=== PATIENT | male | born 1935 | race Two or more races ===

== ENCOUNTER 2018-04-15 19:05 | Emergency (ER) | payer OTHER ==
[~2018-04-15] VITALS: Ht 185.4 cm; Wt 122.5 kg
[2018-04-15] MEDS ORDERED: SUCCINYLCHOLINE CHLORIDE 20 MG/ML VIAL IV ONE ×2 (19:08→22:30)
[2018-04-15] MEDS ORDERED: ETOMIDATE 2 MG/ML VIAL IV ONE ×2 (19:08→22:30)
--- NOTE | 2018-04-15 19:28 | NUR ---
PT BBRA FROM HOME FOR ALTERED MENTAL STATUS. PER EMS PT WAS FOUND BY FAMILY/FRIENDS IN HOME SITTING ON A RECLINER "ALTERED MORE THAN USUAL". PER EMS, FRIENDS STATED HE IS "USUALLY AAOX4". PT NOTED TO BE GCS OF 8-9. PT NOTED TO HAVE LABORED BREATHING WITH MILD DISTRESS. SPO2 86% ON RA, PER MD PT PLACED ON SIMPLE MASK 8L/M. PT ABLE TO MOVE LEFT ARM AND OPEN LEFT EYE. R EYE CLOSED AND UNABLE TO MOVE R ARM. PT PLACED ON MANAGER MARKETING SALES AND POX. PT SAFEY IN PLACE. MD BEDSIDE FOR EVAL.
[2018-04-15] MEDS ORDERED: ACETAMINOPHEN 650 MG/SUPP.RECT RC ONE ×2 (19:30→20:09)
--- NOTE | 2018-04-15 19:31 | NUR ---
PT TO CT VIA [facility] WITH ACLS RN
--- NOTE | 2018-04-15 19:32 | NUR ---
SPOKE WITH WITH GRAND DAUGHTER AYAH MELTON [phone]. 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
[2018-04-15 19:34] LABS: BASOPHILS # (AUTO) 0.5 /CMM (0.0-0.2); BASOPHILS % (AUTO) 3.6 % (0.0-2.0); HEMATOCRIT 49 % (39-51); LYMPHOCYTES # (AUTO) 0.5 /CMM (0.8-4.8); LYMPHOCYTES % (AUTO) 3.4 % (20.0-44.0); MEAN CORPUSCULAR HGB CONC 34 g/dl (31.0-36.0); MEAN CORPUSCULAR VOLUME 87 fL (80-96); MONOCYTES # (AUTO) 0.5 /CMM (0.1-1.30); MONOCYTES % (AUTO) 3.5 % (2.0-12.0); NEUTROPHILS # (AUTO) 12.8 /CMM (1.8-8.9); NEUTROPHILS % (AUTO) 89.5 % (43.0-81.0); PLATELET COUNT (AUTO) 206 /CMM (150-450); RDW COEFFICIENT OF VARIATION 12.4 (11.5-15.0); RED BLOOD CELL COUNT(AUTO) 5.69 MIL/uL (4.5-6.0); WHITE BLOOD COUNT (AUTO) 14.3 K/uL (4.3-11.0)
[2018-04-15 19:45] LABS: CALCIUM, SERUM 9.8 mg/dL (8.5-10.1); CARBON DIOXIDE 22 mmol/L (21-32); CHLORIDE 101 mmol/L (98-107); CREATININE 1.2 mg/dL (0.6-1.3); GLUCOSE 147 mg/dL (74-106); POTASSIUM 4.6 mmol/L (3.5-5.1); SODIUM SERUM 137 mmol/L (136-145); UREA NITROGEN, BLOOD 27 mg/dL (7-18)
[2018-04-15 19:48] LABS: INR 1.21 (0.85-1.15)
--- NOTE | 2018-04-15 19:48 | NUR ---
CALLED [facility] AND REQUESTED A SNAPSHOT FOR THIS PT.
--- NOTE | 2018-04-15 19:51 | NUR ---
PT BACK FROM CT
[2018-04-15 19:54] LABS: TROPONIN I 0.026 ng/mL (0.00-0.056)
[2018-04-15] MEDS ORDERED: VANCOMYCIN 1 GM in IV D5W 250 ML IV ONE (20:00)
[2018-04-15] MEDS ORDERED: IV NS 0.9% 1,000 ML BAG IV ONE (20:00)
[2018-04-15] MEDS ORDERED: CEFTRIAXONE 1GM BAG (ER ONLY) 1 GM/50 ML PIGGYBACK IV ONE (20:00)
[2018-04-15 20:02] LABS: LIPASE 52 U/L (73-393)
[2018-04-15] MEDS ORDERED: POTA20TA83 PO (20:04)
[2018-04-15] MEDS ORDERED: ASPI-1152 PO (20:04)
[2018-04-15] MEDS ORDERED: HYDR25TA4 PO (20:04)
[2018-04-15 20:05] LABS: B-TYPE NATRIURETIC PEPTIDE 3795 PG/ML (0-125)
[2018-04-15] MEDS ORDERED: PROPOFOL 10MG/ML 50ML 50 ML IV STA (20:07)
[2018-04-15] MEDS ORDERED: CEFTRIAXONE 1GM BAG (ER ONLY) 100 ML IV ONE (20:08)
[2018-04-15] MEDS ORDERED: PROPOFOL 100 ML ONE (20:08)
[2018-04-15] MEDS ORDERED: VANCOMYCIN 1 GM VIAL ONE (20:09)
--- NOTE | 2018-04-15 20:12 | NUR ---
RADIOLOGY BEDSIDE FOR CHEST X-RAY TO CONFIRM ET TUBE PLACEMENT
--- NOTE | 2018-04-15 20:13 | NUR ---
CALLED HERMILA BURT MD TO CALL
--- NOTE | 2018-04-15 20:15 | NUR ---
DIPRIVAN STARTED AT 15MCG/KG/MIN PER MD'S ORDERS. WILL CONTINUE TO MONITOR PT.
--- NOTE | 2018-04-15 20:15 | NUR ---
MD AVILES BEDSIDE. RT MARY ANN ZHANG FOR INTUBATION. RN ROBERT ZHANG FOR ASSISTANCE. PT SUCCESSFULLY INTUBATED BY MD AVILES, ET TUBE SIZE 8, 27 AT LIPS. VENT SETTING AC 16, 100%, 500, PEEP 5. PER MD'S ORDERS, PT STARTED IN DIPRIVAN PER PROTOCOL. WILL CONTINUE TO MONITOR PT.
[2018-04-15 20:20] VITALS: BP 208/121
[2018-04-15 20:35] LABS: APPEARANCE,URINE Clear (CLEAR); BILIRUBIN,URINE MODERATE (NEGATIVE); BLOOD, URINE Large Ery/uL (NEGATIVE); COLOR,URINE Amber (YELLOW); KETONES,URINE Trace (NEGATIVE); LEUKOCYTE ESTERASE ,URINE Negative (NEGATIVE); NITRITE, URINE Negative (NEGATIVE); PH,URINE 5.5 (5.0-8.0); PROTEIN,URINE >=300 mg/dl (NEGATIVE); UGLUCOSE Negative (NEGATIVE)
[2018-04-15 20:44] LABS: BAND % (MANUAL) 19 % (0.0-5.0); LYMPHOCYTES % (MANUAL) 9 % (16-48); MONOCYTES % (MANUAL) 3 % (0-11.0); NEUTROPHILS % (MANUAL) 69 (42-76)
[2018-04-15 20:53] LABS: BACTERIA,URINE 2+ /HPF (None Seen); FINE GRANULAR CASTS,URINE Few /LPF (None Seen); HYALINE CASTS, URINE Few /LPF (None Seen); SQUAMOUS EPITHELIAL CELL,UR None Seen /HPF (None Seen); WBC,URINE NONE SEEN /HPF (0-3)
[2018-04-15 21:12] LABS: CREATINE KINASE, TOTAL 257 U/L (39-308)
[2018-04-15 21:16] LABS: ABG BASE EXCESS -4.5 mmol/L; ABG OXYGEN SATURATION 97.6 % (92.0-98.5); ABG PCO2 40.5 mmHg (35.0-45.0); ABG PH 7.333 (7.350-7.450); ABG PO2 112.5 mmHg (75.0-100.0); COHb 0.6 % (0.5-1.5); MetHb 0.5 % (0.0-1.5); O2Hb 96.5 % (94.0-97.0); PEEP,BG 5 cm H2O; SITE, ABG Right Brachial; VENT MODE, BG AC 16 500 100% +5; VT, ABG 500 mL
--- NOTE | 2018-04-15 21:20 | NUR ---
VENT SETTING CHANGED PER MD AVILES. AC16, 80%, 500, PEEP 5. WILL CONTINUE TO MONITOR PT.
[2018-04-15 21:49] LABS: BILIRUBIN,DIRECT 1.5 mg/dL (0.0-0.2)
[2018-04-15 22:01] LABS: ABG BASE EXCESS -4.3 mmol/L; ABG OXYGEN SATURATION 97.1 % (92.0-98.5); ABG PCO2 38.5 mmHg (35.0-45.0); ABG PO2 100.5 mmHg (75.0-100.0); AaDO2 429.5 mmHg; COHb 0.6 % (0.5-1.5); MetHb 0.3 % (0.0-1.5); O2Hb 96.2 % (94.0-97.0); PEEP,BG 5 cm H2O; SITE, ABG Right Radial; VENT MODE, BG AC 16 500 80% +5; VT, ABG 500 mL
[2018-04-15] MEDS ORDERED: CT SWABBABLE VALVE TRANS SET 1 EA INFUS.SET MC ONE (22:25)
[2018-04-15] MEDS ORDERED: IOHEXOL-350 100 ML VIAL IV ONE (22:25)
[2018-04-15] MEDS ORDERED: IV NS 0.9% 500 ML IV ONE (22:25)
[2018-04-15 22:40] VITALS: BP 132/72
--- NOTE | 2018-04-16 00:34 | NUR ---
report given to giselle silver for continuation of care.
--- NOTE | 2018-04-16 00:57 | NUR ---
CHEPE PEREIRA BEDSIDE SPEAKING TO FAMILY MEMBERS
[2018-04-16] MEDS ORDERED: PROPOFOL 100 ML ONE (01:18)
--- NOTE | 2018-04-16 01:28 | NUR ---
[facility] paged per dr Alonzo.
--- NOTE | 2018-04-16 01:28 | NUR ---
facesheet and information faxed to [email or web address] [[email or web address] [phone].
[2018-04-16] MEDS: PROPOFOL 100 ML IV PRN ×2 (01:35→04:22)
--- NOTE | 2018-04-16 02:24 | NUR ---
CALL FROM [facility]. PT ACCEPTED TO [facility]. ICU [address], BY [address]. # FOR REPORT [phone]. ETA FOR [facility]SPORT [id number].
[2018-04-16 02:40] VITALS: BP 141/74
--- NOTE | 2018-04-16 03:35 | NUR ---
REPORT GIVEN TO MECHELLE HILLIARD FOR TARA. TRANSPORT BEDSIDE FOR TRANSFER. PHYSICIAN BEDSIDE FOR TRANSPORT WELL.
--- NOTE | 2018-04-16 03:48 | NUR ---
REPORT GIVEN TO FRANCOISE MIN, [facility] FOR CONTINUATION OF CARE.
[2018-04-16 03:49] VITALS: BP 126/67
--- NOTE | 2018-04-16 03:50 | NUR ---
Patient Tranfers to outside Facility Physician: DR. STREET Location: [facility]
== END 2018-04-16 04:29 | disposition short-term general hospital (02) ==
LOC: ER 19:07 → ICU 04-16 00:04 → UNDOADMIN 04-16 00:04 → ER 04-16 00:46
DX: I63.9 Cerebral infarction, unspecified (principal); I26.99 Other pulmonary embolism without acute cor pulmonale; I10 Essential (primary) hypertension; R79.89 Other specified abnormal findings of blood chemistry; Z79.82 Long term (current) use of aspirin
CPT/HCPCS: 31500; 36415; 36600 ×3; 51702; 70450; 71045 ×2; 71275; 72125; 80048; 80305; 81001; 82247; 82248; 82550; 82803; 82962; 83605 ×2; 83690; 83880; 84484; 85025; 85730; 86850; 87040 ×2; 87081; 87086; 93005; 93971 ×2; 94003; 94640; 96365; 96367; 99082; 99285; A4606; J0330; J0696; J3370; J3490 ×4; J7030; J7040; Q9967; 81000-TC; 94002-TC; Z7610

== ENCOUNTER 2018-07-16 14:36 | Emergency (ER) | payer OTHER ==
[~2018-07-16] VITALS: Ht 188 cm; Wt 122.5 kg
[~2018-07-16 14:36] MED LIST: ASPI-1152 PO; HYDR25TA4 PO; POTA20TA83 PO
--- NOTE | 2018-07-16 14:52 | NUR ---
[facility] AYAH CARRASCO,STS SHE LIVES WITH HIM AND HE FELL THISMORNING. CONTACT NUMBER -[phone]
[2018-07-16] MEDS ORDERED: ONDANSETRON HCL/PF 4 MG/2 ML VIAL ONE (14:57)
[2018-07-16] MEDS ORDERED: MORPHINE SULFATE INJ 4 MG/ML DISP.SYRIN ONE ×2 (14:57→17:40)
[2018-07-16] MEDS ORDERED: MORPHINE SULFATE INJ 2 MG/ML DISP.SYRIN IV ONE (15:00)
[2018-07-16] MEDS ORDERED: ONDANSETRON HCL/PF 4 MG/2 ML VIAL IVP ONE (15:00)
--- NOTE | 2018-07-16 17:05 | NUR ---
MADE INITIAL CALL TO HERMILA
[2018-07-16] MEDS ORDERED: MORPHINE SULFATE INJ 4 MG/ML DISP.SYRIN IV ONE (17:30)
[2018-07-16 17:36] LABS: BASOPHILS # (AUTO) 0.2 /CMM (0.0-0.2); BASOPHILS % (AUTO) 1.5 % (0.0-2.0); EOSINOPHILS % (AUTO) 1.9 % (0.0-6.0); HEMATOCRIT 34 % (39-51); HEMOGLOBIN 11.3 g/dL (13.5-17.5); LYMPHOCYTES # (AUTO) 0.8 /CMM (0.8-4.8); LYMPHOCYTES % (AUTO) 8.4 % (20.0-44.0); MEAN CORPUSCULAR HEMOGLOBIN 29 PG (26.0-33.0); MEAN CORPUSCULAR HGB CONC 34 g/dl (31.0-36.0); MEAN CORPUSCULAR VOLUME 85 fL (80-96); MONOCYTES # (AUTO) 0.6 /CMM (0.1-1.30); MONOCYTES % (AUTO) 6.4 % (2.0-12.0); NEUTROPHILS # (AUTO) 8.2 /CMM (1.8-8.9); NEUTROPHILS % (AUTO) 81.8 % (43.0-81.0); PLATELET COUNT (AUTO) 269 /CMM (150-450); RDW COEFFICIENT OF VARIATION 13.9 (11.5-15.0); RED BLOOD CELL COUNT(AUTO) 3.94 MIL/uL (4.5-6.0)
--- NOTE | 2018-07-16 17:39 | NUR ---
CALLED [facility]AN[facility] BACK. CASE DISPATCHED TO DR Yahir ANDERSON FOR CALL BACK
[2018-07-16 17:49] LABS: CALCIUM, SERUM 8.6 mg/dL (8.5-10.1); CARBON DIOXIDE 31 mmol/L (21-32); CHLORIDE 106 mmol/L (98-107); GLUCOSE 122 mg/dL (74-106); POTASSIUM 4.3 mmol/L (3.5-5.1); SODIUM SERUM 138 mmol/L (136-145); UREA NITROGEN, BLOOD 13 mg/dL (7-18)
[2018-07-16 17:50] LABS: INR 1.1 (0.85-1.15)
[2018-07-16 17:59] LABS: ALANINE AMINOTRANSFERASE 25 U/L (12-78); ALBUMIN 2.7 g/dL (3.4-5.0); ALKALINE PHOSPHATASE 106 U/L (46-116); ASPARTATE AMINOTRANSFERASE 23 U/L (15-37); BILIRUBIN,DIRECT 0.1 mg/dL (0.0-0.2); BILIRUBIN,TOTAL 0.4 mg/dL (0.2-1.0); TOTAL PROTEIN, SERUM 6.8 g/dL (6.4-8.2)
--- NOTE | 2018-07-16 19:15 | NUR ---
REPORT RECEIVED FROM EUGENIO MIN FOR TARA. RESTING QUIETLY, NAD NOTED. ON MONITOR.
[2018-07-16 19:32] VITALS: BP 162/70
--- NOTE | 2018-07-16 19:51 | NUR ---
[facility] ACCEPTED BY DR BEST. GOING TO ROOM 4100D. NUMBER FOR REPORT [phone]. BLS ETA 2045 - [facility].
--- NOTE | 2018-07-16 21:06 | NUR ---
REPORT GIVEN TO TANIA MIN FOR TRANSFER TO [facility]. REPORT GIVEN TO [facility] FOR BLS TRANSFER. ALL PAPERWORK SENT WITH VP [employer]
== END 2018-07-16 21:15 | disposition short-term general hospital (02) ==
LOC: ER 14:37
DX: S72.001A Fracture of unspecified part of neck of right femur, initial encounter for closed fracture (principal); M25.561 Pain in right knee; I10 Essential (primary) hypertension; L40.9 Psoriasis, unspecified; R94.31 Abnormal electrocardiogram [ECG] [EKG]; Z79.82 Long term (current) use of aspirin; W06.XXXA Fall from bed, initial encounter; Y93.89 Activity, other specified; Y92.89 Other specified places as the place of occurrence of the external cause; Y99.8 Other external cause status
CPT/HCPCS: 36415; 71045; 72192; 73502; 73551; 73560; 80048; 80076; 85025; 85730; 93005; 96374; 96375; 96376; 99285; A4606; J2270 ×2; J2405; 73552; Z7610

== ENCOUNTER 2018-10-28 15:20 | Emergency (ER) | payer OTHER ==
[~2018-10-28] VITALS: Ht 182.9 cm; Wt 93.0 kg
--- NOTE | 2018-10-28 15:30 | NUR ---
PT BIB RA 102 FROM HOME AMS X 24 HRS WAS SEEN AT [place] X 2 DAYS AGO, PT IS AAOX2, NOT IN RESPIRATORY DISTRESS, V/S STABLE, KEPT RESTED AND COMFORTABLE. WILL CONTINUE TO MONITOR.
--- NOTE | 2018-10-28 15:40 | NUR ---
PT LABS DRAWNED AND SENT TO LAB. AWAITING RESULTS.
[2018-10-28] MEDS ORDERED: CEFTRIAXONE 1GM BAG (ER ONLY) 50 ML IV ONE ×2 (15:50→16:00)
[2018-10-28] MEDS ORDERED: ACETAMINOPHEN ES 500 MG TABLET ONE (15:50)
[2018-10-28] MEDS ORDERED: IV NS 0.9% 1,000 ML BAG IV ONE ×2 (16:00→19:00)
[2018-10-28] MEDS ORDERED: ACETAMINOPHEN ES 500 MG TABLET PO ONE (16:00)
[2018-10-28 16:10] LABS: BASOPHILS % (AUTO) 0.2 % (0.0-2.0); EOSINOPHILS % (AUTO) 1.1 % (0.0-6.0); HEMATOCRIT 37 % (39-51); LYMPHOCYTES % (AUTO) 6.8 % (20.0-44.0); MEAN CORPUSCULAR HGB CONC 32 g/dl (31.0-36.0); MEAN CORPUSCULAR VOLUME 87 fL (80-96); MONOCYTES # (AUTO) 0.8 /CMM (0.1-1.30); MONOCYTES % (AUTO) 5.8 % (2.0-12.0); NEUTROPHILS # (AUTO) 12.4 /CMM (1.8-8.9); NEUTROPHILS % (AUTO) 86.1 % (43.0-81.0); PLATELET COUNT (AUTO) 338 /CMM (150-450); RED BLOOD CELL COUNT(AUTO) 4.28 MIL/uL (4.5-6.0); WHITE BLOOD COUNT (AUTO) 14.4 K/uL (4.3-11.0)
[2018-10-28 16:15] LABS: CARBON DIOXIDE 30 mmol/L (21-32); CHLORIDE 105 mmol/L (98-107); CREATININE 0.9 mg/dL (0.6-1.3); GLUCOSE 116 mg/dL (74-106); POTASSIUM 4.2 mmol/L (3.5-5.1); SODIUM SERUM 142 mmol/L (136-145); UREA NITROGEN, BLOOD 17 mg/dL (7-18)
--- NOTE | 2018-10-28 16:20 | NUR ---
PT IS WHEELED TO CT SCAN VIA [facility].
[2018-10-28 16:21] LABS: ALANINE AMINOTRANSFERASE 12 U/L (12-78); ALBUMIN 2.9 g/dL (3.4-5.0); ALKALINE PHOSPHATASE 78 U/L (46-116); ASPARTATE AMINOTRANSFERASE 14 U/L (15-37); BILIRUBIN,DIRECT 0.1 mg/dL (0.0-0.2); BILIRUBIN,TOTAL 0.6 mg/dL (0.2-1.0)
--- NOTE | 2018-10-28 16:58 | NUR ---
[facility] AND SPOKE TO CONTRACT PROCESSOR GUERDA TO INFORM THIS PT WAS IN THE ER AND DR CARR WAS READY FOR PRESENTATION TO HERMILA FAGAN AWAITING CALL BACK.
--- NOTE | 2018-10-28 17:08 | NUR ---
URINE COLLECTED VIA STRAIGHT CATH AND SENT TO LAB.
[2018-10-28 17:22] LABS: APPEARANCE,URINE Clear (CLEAR); BILIRUBIN,URINE Negative (NEGATIVE); BLOOD, URINE Negative Ery/uL (NEGATIVE); COLOR,URINE Yellow (YELLOW); KETONES,URINE Trace (NEGATIVE); LEUKOCYTE ESTERASE ,URINE Negative (NEGATIVE); NITRITE, URINE Negative (NEGATIVE); PROTEIN,URINE Trace mg/dl (NEGATIVE); UGLUCOSE Negative (NEGATIVE); UROBILINOGEN,URINE 0.2 EU/dL (0.2)
[2018-10-28 17:31] LABS: BACTERIA,URINE None seen /HPF (None Seen); RBC,URINE NONE SEEN /HPF (0-2); SQUAMOUS EPITHELIAL CELL,UR Few /HPF (None Seen); WBC,URINE 0-2 /HPF (0-3)
[2018-10-28] MEDS ORDERED: AZITHROMYCIN 500 MG in IV D5W 250 ML IV ONE (19:00)
--- NOTE | 2018-10-28 19:06 | NUR ---
CALLED [facility] AND SPOKE TO PRINCIPAL STATISTICAL SCIENTIST MARNIE FOR UPDATE AND WAS TOLD THEY WERE STILL WORKING ON TRANSPORT FOR THIS PT. WILL CALL BACK ONCE THEY HAVE IT ARRANGED.
--- NOTE | 2018-10-28 19:08 | NUR ---
DR. CARR AT BEDSIDE FOR EVAL OF [facility].
--- NOTE | 2018-10-28 19:17 | NUR ---
REPORT GIVEN TO MECHELLE LORA FOR TARA. AWAITING [facility] FOR PLACMENT.
--- NOTE | 2018-10-28 19:20 | NUR ---
RECEIVED REPORT FROM VERÓNICA RN FOR TARA. PT SLEEPING COMFORTABLY IN BED, EASILY AROUSABLE. WILL CONTINUE TO MONITOR
--- NOTE | 2018-10-28 19:35 | NUR ---
CAREGIVER INFORMATION: ALISIA
--- NOTE | 2018-10-28 21:20 | NUR ---
PT SLEEPING COMFORTABLY IN BED. EASILY AROUSABLE. VITAL SIGNS STABLE. WILL CONTINUE TO MONITOR
--- NOTE | 2018-10-28 21:50 | NUR ---
CALLED [facility] FOR AN UPDATE ON THE PT'S TRANSPORT AND WAS TOLD BY [facility] NURSE PRACTITIONER MARGARITA THAT THEY ARE WAITING ON BED ASSIGNMENT FROM [facility].
--- NOTE | 2018-10-28 22:32 | NUR ---
RECEIVED A CALL FROM PEDRO LUIS AT [facility] AND WAS TOLD THIS PT HAS BEEN ACCEPTED AT [facility] UNDER DR. Anastacio GUERRA. PT IS ASSIGNED TO #: [id number]. NUMBER FOR REPORT IS [phone]. ALS TRANSPORT ETA OF 2315 THROUGH [facility].
[2018-10-28 22:52] VITALS: BP 139/63
--- NOTE | 2018-10-28 23:02 | NUR ---
GAVE REPORT TO JAMES MIN FROM [facility] FOR TARA
--- NOTE | 2018-10-28 23:34 | NUR ---
GAVE REPORT TO JOSSE FROM [phone] FOR TRANSPORTATION TARA
== END 2018-10-28 23:38 | disposition short-term general hospital (02) ==
LOC: ER 15:24
DX: R41.82 Altered mental status, unspecified (principal); R50.9 Fever, unspecified; I10 Essential (primary) hypertension; E78.00 Pure hypercholesterolemia, unspecified; Z95.5 Presence of coronary angioplasty implant and graft; Z86.73 Personal history of transient ischemic attack (TIA), and cerebral infarction without residual deficits; Z79.82 Long term (current) use of aspirin
CPT/HCPCS: 36415; 70450; 71045; 80048; 80076; 81001; 83605; 84484; 85025; 85730; 87040 ×2; 87086; 93005; 96365; 96367; 99285; J0456; J0696; J7030 ×2; J7060; 81000-TC

== ENCOUNTER 2019-05-07 19:44 | Emergency (ER) | payer OTHER ==
[~2019-05-07] VITALS: Ht 188 cm; Wt 85.3 kg
[2019-05-07 20:39] LABS: BASOPHILS # (AUTO) 0.1 /CMM (0.0-0.2); BASOPHILS % (AUTO) 0.6 % (0.0-2.0); HEMATOCRIT 42 % (39-51); HEMOGLOBIN 14.1 g/dL (13.5-17.5); LYMPHOCYTES # (AUTO) 1.2 /CMM (0.8-4.8); LYMPHOCYTES % (AUTO) 12.4 % (20.0-44.0); MEAN CORPUSCULAR HGB CONC 34 g/dl (31.0-36.0); MEAN CORPUSCULAR VOLUME 89 fL (80-96); MONOCYTES # (AUTO) 0.6 /CMM (0.1-1.30); MONOCYTES % (AUTO) 6.1 % (2.0-12.0); NEUTROPHILS # (AUTO) 7.9 /CMM (1.8-8.9); NEUTROPHILS % (AUTO) 79.9 % (43.0-81.0); PLATELET COUNT (AUTO) 175 /CMM (150-450); RED BLOOD CELL COUNT(AUTO) 4.68 MIL/uL (4.5-6.0); WHITE BLOOD COUNT (AUTO) 9.8 K/uL (4.3-11.0)
[2019-05-07 20:52] LABS: ALANINE AMINOTRANSFERASE 34 U/L (12-78); ALBUMIN 3.3 g/dL (3.4-5.0); ALKALINE PHOSPHATASE 68 U/L (46-116); ASPARTATE AMINOTRANSFERASE 17 U/L (15-37); BILIRUBIN,DIRECT 0.1 mg/dL (0.0-0.2); BILIRUBIN,TOTAL 0.4 mg/dL (0.2-1.0); CARBON DIOXIDE 28 mmol/L (21-32); CHLORIDE 107 mmol/L (98-107); GLUCOSE 118 mg/dL (74-106); POTASSIUM 3.3 mmol/L (3.5-5.1); SODIUM SERUM 143 mmol/L (136-145); TOTAL PROTEIN, SERUM 7.2 g/dL (6.4-8.2); UREA NITROGEN, BLOOD 20 mg/dL (7-18)
[2019-05-07] MEDS ORDERED: CEPHALEXIN MONOHYDRATE 500 MG CAPSULE PO ONE ×2 (22:00→22:07)
[2019-05-07 22:16] LABS: APPEARANCE,URINE Clear (CLEAR); BILIRUBIN,URINE Negative (NEGATIVE); BLOOD, URINE Trace-intact Ery/uL (NEGATIVE); COLOR,URINE Yellow (YELLOW); KETONES,URINE Negative (NEGATIVE); LEUKOCYTE ESTERASE ,URINE Small (NEGATIVE); NITRITE, URINE Negative (NEGATIVE); PROTEIN,URINE Negative (NEGATIVE); UGLUCOSE Negative (NEGATIVE); UROBILINOGEN,URINE 0.2 EU/dL (0.2)
[2019-05-07 22:20] LABS: BACTERIA,URINE Few /HPF (None Seen); SQUAMOUS EPITHELIAL CELL,UR Few /HPF (None Seen)
--- NOTE | 2019-05-07 22:23 | NUR ---
AMBULANCE ETA [id number]
[2019-05-07] MEDS ORDERED: CLONIDINE HCL 0.1 MG TABLET ONE (23:36)
--- NOTE | 2019-05-07 23:48 | NUR ---
[facility] AT BEDSIDE FOR TRANSPORT HOME.
[2019-05-08] MEDS ORDERED: CLONIDINE HCL 0.1 MG TABLET PO ONE
[2019-05-08 00:11] VITALS: BP 185/107
== END 2019-05-08 00:17 | disposition home or self-care (01) ==
LOC: ER 19:50
DX: G89.29 Other chronic pain (principal); M25.551 Pain in right hip; N39.0 Urinary tract infection, site not specified; E86.0 Dehydration; R51 Headache; I10 Essential (primary) hypertension; E78.00 Pure hypercholesterolemia, unspecified; Z86.73 Personal history of transient ischemic attack (TIA), and cerebral infarction without residual deficits; Z79.82 Long term (current) use of aspirin; Z79.899 Other long term (current) drug therapy; W01.0XXA Fall on same level from slipping, tripping and stumbling without subsequent striking against object, initial encounter; Y93.01 Activity, walking, marching and hiking; Y92.89 Other specified places as the place of occurrence of the external cause; Y99.8 Other external cause status
CPT/HCPCS: 36415; 70450-TC; 71045-TC; 72192-TC; 80048-TC; 80076-TC; 81000-TC; 85025-TC; 87086-TC

== ENCOUNTER 2020-01-11 20:59 | Emergency (ER) | payer MEDICARE, OTHER ==
[~2020-01-11] VITALS: Ht 188 cm; Wt 99.8 kg
--- NOTE | 2020-01-11 21:00 | NUR ---
PATIENT CAME TO ER 4 C/O LETHARGY AND HEMATURIA. PATIENT'S DAUGHTER STATES THAT THE PT PATIENT IS AAOX2. UNABLE TO STATES WHY HE IS HERE IN THE EMERGENCY ROOM, PRESIDENT, OR DATE. PATIENT BREATHING EVENLY AND UNLABORED ON ROOM AIR. CONNECTED TO MONITOR.
--- NOTE | 2020-01-11 21:02 | NUR ---
BLOOD COLLECTED AND SENT TO LAB
--- NOTE | 2020-01-11 22:13 | NUR ---
URINE COLLECTED AND SENT TO THE LAB
[2020-01-11 22:25] LABS: BASOPHILS # (AUTO) 0.1 /CMM (0.0-0.2); BASOPHILS % (AUTO) 1.1 % (0.0-2.0); EOSINOPHILS % (AUTO) 0.8 % (0.0-6.0); HEMATOCRIT 38 % (39-51); HEMOGLOBIN 12.4 g/dL (13.5-17.5); LYMPHOCYTES # (AUTO) 0.6 /CMM (0.8-4.8); LYMPHOCYTES % (AUTO) 6.6 % (20.0-44.0); MEAN CORPUSCULAR HGB CONC 33 g/dl (31.0-36.0); MEAN CORPUSCULAR VOLUME 88 fL (80-96); MONOCYTES # (AUTO) 0.5 /CMM (0.1-1.30); MONOCYTES % (AUTO) 5.4 % (2.0-12.0); NEUTROPHILS # (AUTO) 8.1 /CMM (1.8-8.9); NEUTROPHILS % (AUTO) 86.1 % (43.0-81.0); PLATELET COUNT (AUTO) 207 /CMM (150-450); RED BLOOD CELL COUNT(AUTO) 4.31 MIL/uL (4.5-6.0); WHITE BLOOD COUNT (AUTO) 9.4 K/uL (4.3-11.0)
[2020-01-11 22:32] LABS: CALCIUM, SERUM 9.1 mg/dL (8.5-10.1); CARBON DIOXIDE 28 mmol/L (21-32); CHLORIDE 105 mmol/L (98-107); CREATININE 1.2 mg/dL (0.6-1.3); GLUCOSE 106 mg/dL (74-106); SODIUM SERUM 142 mmol/L (136-145); UREA NITROGEN, BLOOD 18 mg/dL (7-18)
[2020-01-11 22:38] LABS: ALANINE AMINOTRANSFERASE 32 U/L (12-78); ALKALINE PHOSPHATASE 185 U/L (46-116); ASPARTATE AMINOTRANSFERASE 25 U/L (15-37); BILIRUBIN,DIRECT 0.1 mg/dL (0.0-0.2); BILIRUBIN,TOTAL 0.4 mg/dL (0.2-1.0); TOTAL PROTEIN, SERUM 7.6 g/dL (6.4-8.2)
[2020-01-11 22:50] LABS: BILIRUBIN,URINE MODERATE (NEGATIVE); BLOOD, URINE Large Ery/uL (NEGATIVE); KETONES,URINE Trace (NEGATIVE); LEUKOCYTE ESTERASE ,URINE Large (NEGATIVE); NITRITE, URINE Positive (NEGATIVE); PH,URINE 8.5 (5.0-8.0); PROTEIN,URINE >=300 mg/dl (NEGATIVE); UGLUCOSE Negative (NEGATIVE)
[2020-01-11 22:53] VITALS: BP 141/68
[2020-01-11 22:53] LABS: APPEARANCE,URINE TURBID (CLEAR); COLOR,URINE OTHER (YELLOW)
[2020-01-11 23:18] LABS: BACTERIA,URINE Many /HPF (None Seen); RBC,URINE TOO NUMEROUS TO COUN /HPF (0-2); SQUAMOUS EPITHELIAL CELL,UR Rare /HPF (None Seen); WBC,URINE TOO NUMEROUS TO COUN /HPF (0-3)
--- NOTE | 2020-01-11 23:24 | NUR ---
CALLED [facility]
--- NOTE | 2020-01-11 23:26 | NUR ---
DR. ASCENCIO ON THE PHONE WITH DR. SOLO
[2020-01-11] MEDS ORDERED: IV NS 0.9% 1,000 ML BAG IV ONE (23:30)
[2020-01-11] MEDS ORDERED: CEFEPIME 2 GM in IV D5W 100 ML IV ONE (23:30)
[2020-01-11] MEDS ORDERED: CEFEPIME 1 GM VIAL ONE (23:33)
--- NOTE | 2020-01-12 00:25 | NUR ---
Transfer info: [facility] call for report- [phone] Dr. Gonzalez ALS eta [phone]
--- NOTE | 2020-01-12 01:06 | NUR ---
[phone] is granddaughter's number Candis Kyle
--- NOTE | 2020-01-12 01:20 | NUR ---
INFORMED PT'S CRISTEL POON OF TRANSFER TO [facility] PER INSURANCE REQUEST
--- NOTE | 2020-01-12 01:27 | NUR ---
REPORT GIVEN TO JESUS MIN AT [facility] FOR TARA.
--- NOTE | 2020-01-12 01:27 | NUR ---
REPORT GIVEN TO TRANSPORT TEAM FOR TARA. AND TRANSFERRING RESPONSIBILITY.
== END 2020-01-12 01:31 | disposition short-term general hospital (02) ==
LOC: ER 21:01
DX: N39.0 Urinary tract infection, site not specified (principal); I10 Essential (primary) hypertension; E78.00 Pure hypercholesterolemia, unspecified; Z86.73 Personal history of transient ischemic attack (TIA), and cerebral infarction without residual deficits; Z79.82 Long term (current) use of aspirin; Z79.899 Other long term (current) drug therapy
CPT/HCPCS: 36415 ×2; 71045; 80048; 80076; 81001; 83605 ×2; 84145; 84484; 85025; 85730; 87040 ×2; 87086; 93005; 96365; 99285; J0692 ×2; J7030; J7060 ×2; 81000-TC; 87186-TC